=== PATIENT | female | born 2000 | race Two or more races ===

== ENCOUNTER 2024-10-17 13:55 | Observation (INO) | payer MEDICAID ==
[2024-10-17] MEDS ORDERED: PREN-96 PO (15:28)
--- NOTE | 2024-10-17 15:30 | DVH ---
EXAM: US BIOPHYSICAL PROFILE HISTORY: Nuchal COMPARISON: None TECHNIQUE: Multiple transabdominal real-time grayscale sonographic images through the gravid uterus of the fetus with duplex Doppler color flow and M-mode spectral analysis Findings/Impression: Single live intrauterine in vertex presentation with heart rate of 138 bpm. Biophysical profile was performed with 2 points for respirations, 2 points for movement, 2 points for tone and 2 points for amniotic fluid index. Biophysical profile score of 8/8. Amniotic fluid is within normal limits with SPENSER 9.8 cm and MVP 3.8 cm. Normal SPENSER (5-25 cm) Normal MVP (2-8 cm)
--- NOTE | 2024-10-17 17:06 | DVHDS2 ---
Physician Discharge Progress N Final Diagnosis: 3rd trim nuchal cord Operations or Procedures: Operations or Procedures NST/BPP/SPENSER all WNL PATIENT: KEVON JEFFERSONACCT: [id number] UNIT: [id number] : 2000 LOC: [facility] ROOM / BED: TRIAGE1 / A AGE / SEX: 24 / F ADM STATUS: ADM IN SERVICE 1406 ORDERING PHYSICIAN: ALEXANDRA VANN DO PROCEDURE(s): BPP - BIOPHYSICAL PROFILE REASON: Nuchal ORDER NUMBER(s): [id number], ACCESSION NUMBER(s): [id number] EXAM: US BIOPHYSICAL PROFILE HISTORY: Nuchal COMPARISON: None TECHNIQUE: Multiple transabdominal real-time grayscale sonographic images through the gravid uterus of the fetus with duplex Doppler color flow and M-mode spectral analysis Findings/Impression: Single live intrauterine in vertex presentation with heart rate of 138 bpm. Biophysical profile was performed with 2 points for respirations, 2 points for movement, 2 points for tone and 2 points for amniotic fluid index. Biophysical profile score of 8/8. Amniotic fluid is within normal limits with SPENSER 9.8 cm and MVP 3.8 cm. Normal SPENSER (5-25 cm) Normal MVP (2-8 cm) ATED BY: JENNI IGNACIO DO DICTATED DATE/TIME: 10/17/24 1528 Condition on Discharge: Stable Disposition: Home Discharge Instructions: Diet: Regular Activity: No Restrictions, As Tolerated Follow Up/Referral: as scheduled Medications: N/A Follow Up Care: Discharge Statement: "Patient was advised to return to the ER or call 911 if any headaches, dizziness, shortness of breath, chest pain, abdominal pain, bleeding, fevers, or worsening of medical condition. Patient was counseled about treatment plan, medications, possible side effects, patientverbalized understanding. All questions were answered to the best of my ability. This discharge took greater then 30 minutes in planning, reviewing documentation, counseling the patient, and discussing with other team members." Visit Coding OBGYN Date of Service: Oct 17, 2024 Billing Provider: TARA KELLEY DO C D STRIPPER Common Visit Codes: 64532-XNK/OBS SAME DATE (MOD) C D STRIPPER Procedure Codes: 65308-96- NON-STRESS TEST TARA KELLEY DO Oct 17, 2024 17:06
== END 2024-10-17 15:43 | disposition home or self-care (01) ==
LOC: LDRP 13:55 → UNDOADMOB 13:55 → LDRP 14:06
PROVIDERS: ADMIT Obstetrics & Gynecology; ATTEND Obstetrics & Gynecology
DX: O69.81X0 Labor and delivery complicated by cord around neck, without compression, not applicable or unspecified (principal); Z98.890 Other specified postprocedural states; Z79.899 Other long term (current) drug therapy; Z3A.35 35 weeks gestation of pregnancy
CPT/HCPCS: 59025; 76818; 81002; 94760; G0378

== ENCOUNTER 2024-10-24 16:05 | Observation (INO) | payer MEDICAID ==
[~2024-10-24 16:05] MED LIST: PREN-96 PO
--- NOTE | 2024-10-24 16:43 | DVHDS2 ---
Physician Discharge Progress N Final Diagnosis: nuchal cord Operations or Procedures: Operations or Procedures NST/BPP Commentary: Commentary status reassuring Condition on Discharge: Stable Disposition: Home Discharge Instructions: Diet: Regular Activity: Light activity Follow Up/Referral: as scheduled Medications: N/A Follow Up Care: Discharge Statement: "Patient was advised to return to the ER or call 911 if any headaches, dizziness, shortness of breath, chest pain, abdominal pain, bleeding, fevers, or worsening of medical condition. Patient was counseled about treatment plan, medications, possible side effects, patientverbalized understanding. All questions were answered to the best of my ability. This discharge took greater then 30 minutes in planning, reviewing documentation, counseling the patient, and discussing with other team members." Visit Coding OBGYN Date of Service: Oct 24, 2024 Billing Provider: TARA KELLEY DO TEXTILE SUPERVISOR Common Visit Codes: 95073-XNI/OBS SAME DATE (MOD) TEXTILE SUPERVISOR Procedure Codes: 14512-86- NON-STRESS TEST TARA KELLEY DO Oct 24, 2024 16:43
--- NOTE | 2024-10-24 17:34 | DVH ---
Procedure: US BIOPHYSICAL PROFILE 10/24/2024 04:36 PM Indication: Nuchal Cord Comparison: US BIOPHYSICAL PROFILE on DOS: 10/17/24 Technique: Sonogram of gravid uterus utilizing grayscale and color techniques. FINDINGS: Single living intrauterine gestation. Presentation: Cephalic Placenta: Anterior, grade II, no previa or abruption heart rate: 145 bpm SPENSER: 13.2 cm, DVP: 4.8 cm Maternal cervix: Not visualized Other: Nuchal cord noted Biophysical Profile: breathing score: 2 movement score: 2 tone: 2 Quantitative SPENSER score: 2 Total score: 8/8 IMPRESSION: 1. Single living as above. 2. Biophysical profile score: 8/8. 3. Nuchal cord.
== END 2024-10-24 17:31 | disposition home or self-care (01) ==
LOC: LDRP 16:05
PROVIDERS: ADMIT Obstetrics & Gynecology; ATTEND Obstetrics & Gynecology
DX: O69.81X0 Labor and delivery complicated by cord around neck, without compression, not applicable or unspecified (principal); Z98.890 Other specified postprocedural states; Z79.899 Other long term (current) drug therapy; Z3A.36 36 weeks gestation of pregnancy
CPT/HCPCS: 59025; 76818; 81002; 94760; G0378

== ENCOUNTER 2024-10-31 14:29 | Observation (INO) | payer MEDICAID ==
--- NOTE | 2024-10-31 15:24 | DVH ---
Procedure: US BIOPHYSICAL PROFILE 10/31/2024 02:36 PM Indication: nuchal Comparison: US BIOPHYSICAL PROFILE on DOS: 10/24/24, US BIOPHYSICAL PROFILE on DOS: 10/17/24 Technique: Sonogram of gravid uterus utilizing grayscale and color techniques. FINDINGS: Single living intrauterine gestation. Presentation: Cephalic Placenta: Anterior heart rate: 133 bpm SPENSER: 12.6 cm, DVP: 4.4 cm Maternal cervix: Not visualized Other: Nuchal cord noted with umbilical cord draped around neck Biophysical Profile: breathing score: 2 movement score: 2 tone: 2 Quantitative SPENSER score: 2 Total score: 8/8 IMPRESSION: 1. Single living as above. 2. Biophysical profile score: 8/8. 3. Redemonstration of nuchal cord.
--- NOTE | 2024-10-31 16:00 | DVHDS2 ---
Physician Discharge Progress N Final Diagnosis: nuchal cord Secondary Diagnosis: Encounter for NST/BPP Operations or Procedures: Operations or Procedures NST/BPP SPENSER all WNL Condition on Discharge: Stable Disposition: Home Discharge Instructions: Diet: Regular Activity: No Restrictions, As Tolerated Follow Up/Referral: As scheduled Medications: N/A Follow Up Care: Discharge Statement: "Patient was advised to return to the ER or call 911 if any headaches, dizziness, shortness of breath, chest pain, abdominal pain, bleeding, fevers, or worsening of medical condition. Patient was counseled about treatment plan, medications, possible side effects, patientverbalized understanding. All questions were answered to the best of my ability. This discharge took greater then 30 minutes in planning, reviewing documentation, counseling the patient, and discussing with other team members." Visit Coding OBGYN Date of Service: Oct 31, 2024 Billing Provider: TARA KELLEY DO JOURNEYMAN GLAZIER Common Visit Codes: 49382-CYT/OBS SAME DATE (HIGH) JOURNEYMAN GLAZIER Procedure Codes: 68793-71- NON-STRESS TEST TARA KELLEY DO Oct 31, 2024 16:00
== END 2024-10-31 15:57 | disposition home or self-care (01) ==
LOC: LDRP 14:29 → UNDOADMOB 14:29 → LDRP 14:36 → UNDODISOB 15:57
PROVIDERS: ADMIT Obstetrics & Gynecology; ATTEND Obstetrics & Gynecology
DX: O69.81X0 Labor and delivery complicated by cord around neck, without compression, not applicable or unspecified (principal); Z98.890 Other specified postprocedural states; Z79.899 Other long term (current) drug therapy; Z3A.37 37 weeks gestation of pregnancy
CPT/HCPCS: 59025; 76819; 81002; 94760; G0378; 76818

== ENCOUNTER 2024-11-07 07:36 | Observation (INO) | payer MEDICAID ==
--- NOTE | 2024-11-07 14:44 | DVH ---
BIOPHYSICAL PROFILE HISTORY: nuchal cord TECHNIQUE: Multiple transabdominal real-time grayscale sonographic images through the gravid uterus of the fetus with duplex Doppler color flow and M-mode spectral analysis Comparison 10/31/2024, 10/24/2024 and 10/17/2024 FINDINGS: BIOPHYSICAL PROFILE: breathing score: 2 movement score: 2 tone score: 2 Quantitative SPENSER score: 2 (SPENSER: 14.2 Cm.) Total score: 8 The cervix is not well-visualized Single live fetus in cephalic presentation. heart rate 159 beats per minute. Anterior placenta without previa or abruption. Redemonstration of nuchal cord. IMPRESSION: Biophysical profile score: 8 Redemonstration of nuchal cord.
--- NOTE | 2024-11-07 17:04 | DVHDS2 ---
Physician Discharge Progress N Final Diagnosis: nuchal cord Operations or Procedures: Operations or Procedures NST/BPP/SPENSER Limited OB U/S Condition on Discharge: Stable Disposition: Home Discharge Instructions: Diet: Regular Activity: No Restrictions, As Tolerated Follow Up/Referral: as scheduled Medications: N/A Follow Up Care: Discharge Statement: "Patient was advised to return to the ER or call 911 if any headaches, dizziness, shortness of breath, chest pain, abdominal pain, bleeding, fevers, or worsening of medical condition. Patient was counseled about treatment plan, medications, possible side effects, patientverbalized understanding. All questions were answered to the best of my ability. This discharge took greater then 30 minutes in planning, reviewing documentation, counseling the patient, and discussing with other team members." Visit Coding OBGYN Date of Service: Nov 07, 2024 Billing Provider: TARA KELLEY DO CHAIN HOIST OPERATOR Common Visit Codes: 57002-BNK/OBS SAME DATE (HIGH) CHAIN HOIST OPERATOR Procedure Codes: 77456-01- NON-STRESS TEST TARA KELLEY DO Nov 07, 2024 17:04
== END 2024-11-07 15:04 | disposition home or self-care (01) ==
LOC: LDRP 13:52 → UNDOADMOB 13:52 → LDRP 13:59 → UNDODISOB 15:04
PROVIDERS: ADMIT Obstetrics & Gynecology; ATTEND Obstetrics & Gynecology
DX: O69.81X0 Labor and delivery complicated by cord around neck, without compression, not applicable or unspecified (principal); Z98.890 Other specified postprocedural states; Z79.899 Other long term (current) drug therapy; Z3A.38 38 weeks gestation of pregnancy
CPT/HCPCS: 59025; 76819; 81002; 94760; G0378; 76818

== ENCOUNTER 2024-11-14 11:40 | Observation (INO) | payer MEDICAID ==
--- NOTE | 2024-11-14 15:55 | DVH ---
EXAM: US BIOPHYSICAL PROFILE HISTORY: nuchal x 1 COMPARISON: US BIOPHYSICAL PROFILE on DOS: 11/07/24, US BIOPHYSICAL PROFILE on DOS: 10/31/24, US BIOPHYS ICAL PROFILE on DOS: 10/24/24 TECHNIQUE: Multiple transabdominal real-time grayscale sonographic images through the gravid uterus of the fetus with duplex Doppler color flow and M-mode spectral analysis Findings/Impression: Single live intrauterine in vertex presentation with heart rate of 135 bpm. Biophysical profile was performed with 2 points for respirations, 2 points for movement, 2 points for tone and 2 points for amniotic fluid index. Biophysical profile score of 8/8. Amniotic fluid is within normal limits with SPENSER 10.2 cm and MVP 4.1 cm. Possible nuchal cord. Normal SPENSER (5-25 cm) Normal MVP (2-8 cm)
--- NOTE | 2024-11-15 00:18 | DVHDS2 ---
Discharge Summary Date of Admission Nov 14, 2024 at 13:35 Date of Discharge: Nov 14, 2024 Admitting Diagnosis here for nst bpp Wounds: none Brief Hx & Hospital Course: nst bpp Consults/Reason for consult none Operations or Procedures none Condition at Discharge: Good Final Diagnosis/Problems List reasuring Discharge Disposition: Home SNF Discharge Will this Physician continue t: No Discharge Instruct/Medications Diet: Regular Activity: No Restrictions, As Tolerated Activity comment: pelvic rest kick counts and labor precautions Follow Up/Referral: as scheduled Discharge Statement: "Patient was advised to return to the ER or call 911 if any headaches, dizziness, shortness of breath, chest pain, abdominal pain, bleeding, fevers, or worsening of medical condition. Patient was counseled about treatment plan, medications, possible side effects, patientverbalized understanding. All questions were answered to the best of my ability. This discharge took greater then 30 minutes in planning, reviewing documentation, counseling the patient, and discussing with other team members." ASSESSMENT ASSESSMENT Assessment Visit Coding OBGYN Date of Service: Nov 14, 2024 BAND SAWYER Common Visit Codes: 56716-[id number] INP/OBS CARE(HIGH), 87674-NDI/OBS SAME DATE (LOW), 10832-CPW/OBS SAME DATE (MOD), 52309-SMK/OBS SAME DATE (HIGH) BAND SAWYER Procedure Codes: 25952-82- NON-STRESS TEST MICKI OSBORNE DO Nov 15, 2024 00:18
== END 2024-11-14 15:58 | disposition home or self-care (01) ==
LOC: LDRP 13:35
PROVIDERS: ADMIT Obstetrics & Gynecology; ATTEND Obstetrics & Gynecology
DX: O69.81X0 Labor and delivery complicated by cord around neck, without compression, not applicable or unspecified (principal); Z98.890 Other specified postprocedural states; Z79.899 Other long term (current) drug therapy; Z3A.39 39 weeks gestation of pregnancy
CPT/HCPCS: 59025; 76819; 81002; G0378; 76818

== ENCOUNTER 2024-11-15 17:36 | Observation (INO) | payer MEDICAID ==
--- NOTE | 2024-11-15 19:41 | DVH ---
US OB LIMITED CLINICAL HISTORY: Vaginal Bleeding COMPARISON: [facility] 11/14/2024 TECHNIQUE: Real-time grayscale, color flow and M-mode imaging of the gravid uterus is performed. FINDINGS: Single living intrauterine gestation. heart rate 147 beats per minute. Cephalic presentation. Placenta is anterior. No definite evidence of abruption or previa at this time. The cervix measures approximately 3.8 cm and appears closed. Amniotic fluid index 10.5 cm. Nuchal cord is noted. IMPRESSION: Single living intrauterine gestation as above.
--- NOTE | 2024-11-15 21:40 | DVHDS2 ---
Physician Discharge Progress N Final Diagnosis: IUP at 39 weeks Secondary Diagnosis: Bloody Show; not in labor Operations or Procedures: Operations or Procedures NST Other Interventions Other Interventions Ultrasound performed for placenta location Commentary: Commentary VE performed: 50//-2/Vtx/I Posterior Condition on Discharge: Stable Disposition: Home Discharge Instructions: Diet: Regular Activity: No Restrictions, As Tolerated Follow Up/Referral: RETURN TO BIRTHPLACE IF YOUR CONTRACTIONS BEGIN TO GET CLOSER TOGETHER. Medications: CONTINUE TAKING ALL CURRENT MEDICATION PREVIOUSLY PRESCRIBED BY DR MATTHEWS. Follow Up Care: Primary Care Provider: Dr Matthews Discharge Statement: "Patient was advised to return to the ER or call 911 if any headaches, dizziness, shortness of breath, chest pain, abdominal pain, bleeding, fevers, or worsening of medical condition. Patient was counseled about treatment plan, medications, possible side effects, patientverbalized understanding. All questions were answered to the best of my ability. This discharge took greater then 30 minutes in planning, reviewing documentation, counseling the patient, and discussing with other team members." Discharge Care Plan Instructions Labor precautions and FKC instructions given If undelivered keep regular scheduled appt Visit Coding OBGYN Date of Service: Nov 15, 2024 Billing Provider: TRISTIN VYAS CNM ELECTRICAL LINE WORKER Common Visit Codes: [id number] INP/OBS CARE (HIGH) TRISTIN VYAS CNM Nov 15, 2024 21:40
== END 2024-11-15 19:07 | disposition home or self-care (01) ==
LOC: LDRP 17:36
PROVIDERS: ADMIT Obstetrics & Gynecology; ATTEND Obstetrics & Gynecology
DX: O62.9 Abnormality of forces of labor, unspecified (principal); Z98.890 Other specified postprocedural states; Z79.899 Other long term (current) drug therapy; Z3A.39 39 weeks gestation of pregnancy
CPT/HCPCS: 59025; 76815; 81002; 94760; G0378

== ENCOUNTER 2024-11-16 01:36 | Inpatient (IN) | payer MEDICAID ==
[~2024-11-16] VITALS: Ht 160 cm; Wt 69.4 kg
[2024-11-16] MEDS ORDERED: ONDANSETRON HCL 4 MG/2 ML VIAL IV PRN (02:30)
[2024-11-16] MEDS ORDERED: NALBUPHINE HCL 10 MG/1ml INJECTION IV PRN (02:30)
[2024-11-16 04:03] LABS: Urine Bacteria None Seen /hpf (None Seen)
[2024-11-16 04:08] LABS: Basophils # (auto) 0 10 ^3/uL (0-0.2); Basophils % (auto) 0.5 % (0.0-2.0); Eosinophils # (auto) 0.1 10 ^3/uL (0-0.8); Hematocrit 34.6 % (36.0-46.0); Hemoglobin 11.8 g/dL (12.2-16.2); Lymphocytes # (auto) 1.8 10 ^3/uL (0.4-5.4); Lymphocytes % (auto) 24.8 % (10.0-50.0); Mean Corpuscular Hemoglobin 29.1 pg (28.0-32.0); Mean Corpuscular Hgb Conc. 34.1 g/dL (32.0-36.0); Mean Corpuscular Volume 85.3 fL (80.0-100.0); Monocytes # (auto) 0.6 10 ^3/uL (0-1.3); Monocytes % (auto) 7.5 % (0.0-12.0); Neutrophils # (auto) 4.9 10 ^3/uL (1.6-8.6); Neutrophils % (auto) 66.2 % (37.0-80.0); Nucleated Red Blood Cells % 0.1 %; Platelet Count (auto) 162 10^3/uL (140-450); Red Blood Cells 4.05 10^6/uL (4.0-5.20); Red Cell Distribution Width 14.8 % (11.8-14.3); White Blood Cell 7.4 10^3/uL (4.4-10.8)
[2024-11-16 04:23] LABS: INR 0.88 (0.9-1.15); Partial Thromboplastin Time 27.9 SEC (24.5-34.5); Prothrombin Time 9.4 sec (9.3-11.8)
--- NOTE | 2024-11-16 04:24 | DVHHP2 ---
OB CC & HPI Date Date of Admission: Nov 16, 2024 Patient Identification: : 1 Para: 0 Chief Complaints: Reason for admission: rupture of membranes Admission Nurse Assessment Rev: Yes History of Present Complaints HPI: 24 y o presented to L&D with c/o SROM and UC's, Denies VB. Confirmed + FM. PNC: Pt has been receivinng regular care here at [facility] wit Dr Matthews and has has an uncomplicated course Past Medical History Cardiac: No pertinent Hx Pulmonary: No pertinent Hx Central Nervous System: No pertinent Hx GI: No pertinent Hx Hemotology/Oncology: No pertinent Hx Hepatobiliary: No pertinent Hx Psychiatric: No pertinent Hx Musculoskeletal: No pertinent Hx Rheumotologic: No pertinent Hx Infectious Disease: No peritnent Hx ENT: No pertinent Hx Renal/: No pertinent Hx Endocrine: No pertinent Hx Dermatology: No pertinent Hx Past Surgical History: No pertinent Hx OB History OB History Care: Good Care Ultrasounds: Normal mid trimester US Obstetrical Complications: None Medical Complications: None Allergies: Coded Allergies: NO KNOWN ALLERGIES (Unverified , 11/16/24) Home Meds Reported Medications Vit W/ Ferrous Fumara ( One Daily) Daily Tab, 1 TAB PO DAILY, #90 TAB 3 Refills 10/17/24 Current Medications Current Medications Medications (Trade) Dose Ordered Sig/Gregory Route PRN Reason Start Time Stop Time Status Last Admin Lactated Ringer's 1,000 ml @ 125 mls/hr Q8H IV 11/16/24 02:30 Nalbuphine HCl (Nubain) 10 mg Q4HP PRN IV MODERATE PAIN (4-6 PAIN SCALE) 11/16/24 02:30 Cindi Perez (Tucks) 1 pad PRN PRN TOP PERINEAL AREA DISCOMFORT 11/16/24 02:30 Sodium Lauryl Sulfate (Phisoderm) 240 ml PRN PRN TOP PERINEAL AREA DISCOMFORT 11/16/24 02:30 Benzocaine (Dermoplast) 1 applic PRN PRN TOP PERINEAL AREA DISCOMFORT 11/16/24 02:30 Lidocaine HCl (Xylocaine) 20 ml ONCE PRN IJ PERINEAL AREA DISCOMFORT 11/16/24 02:30 Ondansetron HCl (Zofran) 4 mg Q4HPRN PRN IV NAUSEA / VOMITING 11/16/24 02:30 Family & Social History Family/Social History Past Family/Social History: Unremarkable OB Plan Plan Admitting Diagnosis: LOF Visit Coding OBGYN Date of Service: Nov 16, 2024 Billing Provider: TRISTIN VYAS CNM SHAFTING CLEANER Common Visit Codes: 04041-[id number] INP/OBS CARE(HIGH) TRISTIN VYAS CNM Nov 16, 2024 04:24
[2024-11-16 04:26] LABS: Alanine Aminotransferase 20 U/L (7-40); Albumin 3.7 g/dL (3.2-4.8); Alkaline Phosphatase 231 U/L (46-116); Anion Gap 10 (5-15); BUN/Creatinine Ratio 10.5 (10.0-20.0); Blood Urea Nitrogen 6 mg/dL (9-23); Calcium 9.4 mg/dL (8.7-10.4); Carbon Dioxide 20 mmol/L (20-31); Chloride 107 mmol/L (98-107); Glucose 75 mg/dL (74-106); Potassium 3.9 mmol/L (3.5-5.1); Sodium 137 mmol/L (136-145); Total Protein 6.1 g/dL (5.7-8.2)
[2024-11-16] MEDS: WITCH HAZEL-GLYCERIN PAD TOP PRN (04:26)
[2024-11-16] MEDS: DERMOPLAST 60ML BOTTLE TOP PRN (04:26)
[2024-11-16] MEDS: PHISODERM TOP SOLN 240ML BTL TOP PRN (04:26)
[2024-11-16 04:27] LABS: Bilirubin, Total 0.4 mg/dL (0.2-1.0)
[2024-11-16 04:28] LABS: Urine Blood 1+ /uL (Negative); Urine Clarity Turbid (Clear); Urine Color Light-Yellow (Yellow); Urine Protein, UAD Negative (Negative); Urine Specific Gravity 1.009 (1.001-1.035); Urine Squamous Epithelial Cell MOD /hpf (<5); Urine Urobilinogen Normal (Negative); Urine WBC 7 /HPF (0-5)
[2024-11-16 04:40] LABS: Aspartate Aminotransferase 22 U/L (13-40)
[2024-11-16 04:42] LABS: Amphetamine Screen, Urine Neg (NEGATIVE); Barbiturate Scree,Urine Neg (NEGATIVE); Benzodiazephine Screen, Urine Neg (NEGATIVE); Cocaine Screen, Urine Neg (NEGATIVE); Opiate Scree,Urine Neg (NEGATIVE)
[2024-11-16 04:43] LABS: Cannabinoid Screen, Urine Neg (NEGATIVE); Phencyclidine Screen, Urine Neg (NEGATIVE)
[2024-11-16] MEDS: ePHEDrine SULFATE 50 MG/ML AMP ONE (06:53)
[2024-11-16] MEDS: LACTATED RINGER'S 1,000 ML IV SCH (07:25)
[2024-11-16] MEDS: ePHEDrine SULFATE 50 MG/ML AMP IV ONE (07:45)
[2024-11-16] MEDS: LACT. RINGERS/OXYTOCIN 20UNITS 1,000 ML IV SCH (09:03)
--- NOTE | 2024-11-16 16:43 | LDN2 ---
Labor and Delivery Note Date 11/16/24 Age 24 1 Para 1 EGA Term Diagnosis Term delivered Category II FHR in 2nd stage of labor nuchal cord (tight) Vaginal Delivery: VTX Vacuum Assisted: Yes Placenta: Spontaneous Sex: Male Weight 7lb 8oz Apgars 6/8 Nuchal Cord Transected: Yes (Tight nuchal cord, unable to reduce at perineum. Double clamped and cut) Amniotic Fluid: Clear Anesthesia Epidural Episiotomy: Yes Extension: No Repaired with 3-0 Chromic Rectal exam intact, not involved. Normal sphincter tone and integrity EBL 200 mL Labs Blood Bank 11/16/24 03:34: Blood Type A POSITIVE Complications None Comments/Significant Med Rick Prolonged decels and deep variable decels in 2nd stage of labor Verbal consent obtained for vacuum delivery. R/B/A d/w patient Fetus at +3 station, OA, pelvis adequate. Applied x 1, 3 pulls, no pop offs, Gentle traction only, extraction coordinated with maternal pushing effort only Successful extraction over midline episiotomy. Nuchal cord clamped an cut before delivery (tight) Cord gases obtained, results pending Placenta spont 3VC, EBL 200ml. Repaired Episiotomy, rectum intact, rectal sphincter not involved No complications, doing well. Visit Coding OBGYN Date of Service: Nov 16, 2024 Billing Provider: TARA KELLEY DO HOSPITAL ADMINISTRATIVE ASSISTANT Common Visit Codes: [id number] INP/OBS CARE(HIGH) HOSPITAL ADMINISTRATIVE ASSISTANT Procedure Codes: 22098-PUMJW OB CARE,VAG DELIVERY (Episiotomy, vacuum extraction vaginal delivery) TAAR KELLEY DO Nov 16, 2024 16:43
[2024-11-16] MEDS ORDERED: ONDANSETRON ODT 4 MG TAB PO PRN (17:00)
[2024-11-16] MEDS ORDERED: ACETAMINOPHEN 325 MG TAB PO PRN (17:00)
[2024-11-16] MEDS: LACT. RINGERS/OXYTOCIN 20UNITS 500 ML IV ONE ×2 (17:25→17:29)
[2024-11-16] MEDS: LIDOCAINE 2%HCL (LOCAL ANESTH.) INJ 20ML MDV IJ PRN (18:13)
[2024-11-16] MEDS: ROPIVACAINE HCL 200 ML ONE (18:14)
[2024-11-16 19:00] VITALS: BP 111/71; PULSE 100; RESP 16; TEMP 97.8; O2SAT 97
[2024-11-16] MEDS: DOCUSATE SOD 100 MG CAP PO SCH (22:00)
[2024-11-16 23:00] VITALS: BP 128/84; PULSE 100; RESP 18; TEMP 98.3; O2SAT 99
[2024-11-17 03:00] VITALS: BP 116/61; PULSE 86; RESP 16; TEMP 98.3; O2SAT 97
[2024-11-17 04:35] LABS: Basophils # (auto) 0 10 ^3/uL (0-0.2); Basophils % (auto) 0.1 % (0.0-2.0); Eosinophils # (auto) 0 10 ^3/uL (0-0.8); Eosinophils % (auto) 0.1 % (0.0-7.0); Hematocrit 28.3 % (36.0-46.0); Hemoglobin 9.7 g/dL (12.2-16.2); Lymphocytes # (auto) 1.2 10 ^3/uL (0.4-5.4); Lymphocytes % (auto) 8.5 % (10.0-50.0); Mean Corpuscular Hemoglobin 29.3 pg (28.0-32.0); Mean Corpuscular Hgb Conc. 34.3 g/dL (32.0-36.0); Mean Corpuscular Volume 85.4 fL (80.0-100.0); Monocytes # (auto) 1.1 10 ^3/uL (0-1.3); Monocytes % (auto) 7.9 % (0.0-12.0); Neutrophils # (auto) 11.4 10 ^3/uL (1.6-8.6); Neutrophils % (auto) 83.4 % (37.0-80.0); Platelet Count (auto) 143 10^3/uL (140-450); Red Blood Cells 3.31 10^6/uL (4.0-5.20); Red Cell Distribution Width 14.9 % (11.8-14.3); White Blood Cell 13.7 10^3/uL (4.4-10.8)
[2024-11-17] MEDS: IBUPROFEN 600 MG TAB PO PRN (04:42)
--- NOTE | 2024-11-17 06:23 | DVHDS2 ---
Physician Discharge Progress N Final Diagnosis: Term , delivered Secondary Diagnosis: Precipitous drop in H/H Operations or Procedures: Operations or Procedures Vacuum assisted Vaginal delivery Episiotomy Condition on Discharge: Stable Disposition: Home Discharge Instructions: Diet: Regular Activity: Light activity Follow Up/Referral: [address] Matthews Medications: Ibuprofen PRN Follow Up Care: Discharge Statement: "Patient was advised to return to the ER or call 911 if any headaches, dizziness, shortness of breath, chest pain, abdominal pain, bleeding, fevers, or worsening of medical condition. Patient was counseled about treatment plan, medications, possible side effects, patientverbalized understanding. All questions were answered to the best of my ability. This discharge took greater then 30 minutes in planning, reviewing documentation, counseling the patient, and discussing with other team members." Visit Coding OBGYN Date of Service: Nov 17, 2024 Billing Provider: TARA KELLEY DO DIRECTOR OF CASEWORK DEPARTMENT Common Visit Codes: 01386-KAS/OBS DISCH DAY <30MIN TARA KELLEY DO Nov 17, 2024 06:23
[2024-11-17] MEDS ORDERED: IBU600T PO (06:25)
[2024-11-17 06:58] VITALS: BP 113/65; PULSE 73; RESP 16; TEMP 99; O2SAT 97
[2024-11-17 10:44] VITALS: BP 118/75; PULSE 80; RESP 16; TEMP 98.1
[2024-11-17 15:00] VITALS: BP 117/81; PULSE 85; RESP 16; TEMP 98.1; O2SAT 100
[2024-11-17 19:25] VITALS: BP 130/67; PULSE 96; RESP 16; TEMP 98.1; O2SAT 97
[2024-11-17] MEDS ORDERED: FER325T PO (21:25)
[2024-11-17] MEDS ORDERED: DOCU-265 PO (21:25)
[2024-11-17 23:07] VITALS: BP 107/59; PULSE 77; RESP 15; TEMP 98.1; O2SAT 96
--- NOTE | 2024-11-18 00:06 | DVHPN2 ---
Progress Note Date Seen: Nov 18, 2024 Subjective S: bleeding is less, eating food without issues, denies lightheaded/dizziness, pain well controlled with oral medications, no issues with voiding, had BM already, ambulating well, and supplementing with formula vital signs Vital Sign Date Time Temp Pulse Resp B/P (MAP) Pulse Ox O2 Delivery O2 Flow Rate FiO2 11/17/24 15:00 98.1 85 16 117/81 (93) 100 98.1 11/17/24 07:00 Room Air medications Current Medications Medications Dose Ordered Sig/Gregory Route Start Time Stop Time Status Last Admin Dose Admin Lactated Ringer's 1,000 ml @ 125 mls/hr Q8H IV 11/16/24 02:30 11/16/24 07:25 125 MLS/HR Nalbuphine HCl 10 mg Q4HP PRN IV 11/16/24 02:30 Witch Ana 1 pad PRN PRN TOP 11/16/24 02:30 11/16/24 04:26 1 PAD Sodium Lauryl Sulfate 240 ml PRN PRN TOP 11/16/24 02:30 11/16/24 04:26 240 ML Benzocaine 1 applic PRN PRN TOP 11/16/24 02:30 11/16/24 04:26 1 APPLIC Lidocaine HCl 20 ml ONCE PRN IJ 11/16/24 02:30 Ondansetron HCl 4 mg Q4HPRN PRN IV 11/16/24 02:30 Oxytocin 1,000 ml @ 6 ml/hr Q24H IV 11/16/24 07:00 11/16/24 09:03 6 ML/HR Ibuprofen 600 mg Q6HP PRN PO 11/16/24 17:00 11/17/24 19:39 600 MG Acetaminophen 650 mg Q4HP PRN PO 11/16/24 17:00 Ondansetron HCl 4 mg Q4HPRN PRN PO 11/16/24 17:00 Docusate Sodium 200 mg HS PO 11/16/24 22:00 11/17/24 19:39 200 MG laboratory and microbiology Laboratory Tests 11/17/24 04:08 11/16/24 03:34 Test 11/16/24 03:34 Range/Units Serum Glucose 75 74-106 mg/dL Objective O: VSS Chest: heart sounds normal and lung sounds clear bilaterally Abd: soft, non-tender, fundus at U/firm/midline, active bowel sounds, no rebound or guarding Perineum: sutures intact, edges well approximated, no erythema/edema noted Ext: Non-tender, No edema, 2+ BLE DTRs Lochia: minimal See lab results Problems(with codes): (1) Vacuum-assisted vaginal delivery (2) At risk for infection associated with episiotomy (3) Precipitous drop in hematocrit Assessment/Plan A: 24yo now PPD#2 s/p VAVD Anemia Rh+ Rubella Immune Pain control with PO medications Bowel regimen P: D/C home today Rx sent to pharmacy precautions and preeclampsia warning signs reviewed F/U with Dr. Matthews in 2 weeks Plan discussed with: Patient, Spouse Visit Coding OBGYN Date of Service: Nov 18, 2024 Billing Provider: NINI RIVERA CNM ENGINEERING PROGRAM ANALYST Common Visit Codes: [id number] INP/OBS CARE(HIGH) SUMI WOLF MDWF Nov 18, 2024 00:06
--- NOTE | 2024-11-18 00:11 | DVHDS2 ---
Obstetrics Discharge Summary Obstetrics Discharge Summary Date of Admission: Nov 16, 2024 Date of Discharge: Nov 18, 2024 Reason For Admission: Onset of Labor (SROM) Procedures: NST, Ultrasound Intrapartum Procedures: Vacuum Extraction, Episiotomy (midline) Procedures: Hct/date: (11/17/24), Hgb/date: (11/17/24) Operative Complicat: None Discharge Diagnosis: Term -Delivered Discharge Information: Activity (as tolerated, no heavy lifting and nothing in the vagina for 6 weeks), Diet (Routine), Medications (RX sent), Instructions (Routine), Discharge to (Home), Accompanied by (partner), Discarge date (11/18/2024) Visit Coding OBGYN Date of Service: Nov 18, 2024 Billing Provider: NINI RIVERA CNM TRANSPORTATION ESCORT Common Visit Codes: 19698-PCR/OBS DISCH DAY <30MIN SUMI WOLF MDWF Nov 18, 2024 00:11
[2024-11-18 03:30] VITALS: BP 100/56; PULSE 72; RESP 15; TEMP 98.1; O2SAT 96
[2024-11-18 07:24] VITALS: BP 110/68; PULSE 68; RESP 16; TEMP 97.6; O2SAT 99
[2024-11-18 11:45] VITALS: BP 112/74; PULSE 70; RESP 16; TEMP 98.3; O2SAT 97
== END 2024-11-18 11:42 | disposition home or self-care (01) | DRG 560 ==
LOC: LDRP 01:36 → OBSVTOIN 02:18 → LDRP 17:11
PROVIDERS: ADMIT Obstetrics & Gynecology; ATTEND Obstetrics & Gynecology
PROC: 10D07Z6 Extraction of Products of Conception, Vacuum, Via Natural or Artificial Opening (ICD-10-PCS; principal; 2024-11-16)
PROC: 0W8NXZZ Division of Female Perineum, External Approach (ICD-10-PCS; 2024-11-16)
PROC: 3E0R3BZ Introduction of Anesthetic Agent into Spinal Canal, Percutaneous Approach (ICD-10-PCS; 2024-11-16)
PROC: 00HU33Z Insertion of Infusion Device into Spinal Canal, Percutaneous Approach (ICD-10-PCS; 2024-11-16)
DX: O69.1XX0 Labor and delivery complicated by cord around neck, with compression, not applicable or unspecified (principal); Z37.0 Single live birth; R71.0 Precipitous drop in hematocrit; O76 Abnormality in fetal heart rate and rhythm complicating labor and delivery; Z3A.39 39 weeks gestation of pregnancy
CPT/HCPCS: 36415; 59025; 59409; 62282; 80053; 80307; 81001; 85025; 85610; 85730; 86780; 86803; 86850; 86900; 86901; 94760; 94762; 96360; 96361; 96365; 96366; G0378; J2590